=== PATIENT | female | born 1970 | race Caucasian/White ===

== ENCOUNTER 2017-04-28 21:55 | Emergency (ER) | payer BC ==
[~2017-04-28] VITALS: Ht 170.2 cm; Wt 54.4 kg
--- NOTE | 2017-04-29 00:44 | NUR ---
Patient discharged to home in stable conditon. Written and verbal after care instructions given. Patient verbalizes understanding of instructions.
== END 2017-04-29 00:45 | disposition home or self-care (01) ==
LOC: ER 21:55
DX: M20.012 Mallet finger of left finger(s) (principal); X58.XXXA Exposure to other specified factors, initial encounter; Y93.89 Activity, other specified; Y92.89 Other specified places as the place of occurrence of the external cause; Y99.8 Other external cause status
CPT/HCPCS: 29130; 73140; 99284; A4663